=== PATIENT | female | born 1930 | race Caucasian/White ===

== ENCOUNTER → 2017-06-14 | Outpatient (CLI) | payer MEDICARE, BC, OTHER ==
[2017-06-14 13:47] LABS: AUTOMATED NEUTROPHIL # 5.7 TH/MM3 (1.8-7.7); BASOPHIL # 0.1 TH/MM3 (0-0.2); BASOPHIL % 0.7 % (0.0-2.0); EOSINOPHIL # 0.3 TH/MM3 (0-0.4); EOSINOPHIL % 3.4 % (0.0-4.0); HEMATOCRIT 39.5 % (35.0-46.0); HEMO FLAGS DIFF FINAL; HEMOGLOBIN 13.4 GM/DL (11.6-15.3); LYMPH % 16.4 % (9.0-44.0); LYMPHOCYTE # 1.3 TH/MM3 (1.0-4.8); MEAN CELL VOLUME 89.4 FL (80.0-100.0); MEAN CORPUSCULAR HEMOGLOBIN 30.2 PG (27.0-34.0); MEAN CORPUSCULAR HGB CONC 33.8 % (32.0-36.0); MEAN PLATELET VOLUME 8.4 FL (7.0-11.0); MONO % 8.1 % (0.0-8.0); MONOCYTE # 0.6 TH/MM3 (0-0.9); NEUT % 71.4 % (16.0-70.0); PLATELET COUNT 239 TH/MM3 (150-450); RED BLOOD COUNT 4.42 MIL/MM3 (4.00-5.30); RED CELL DISTRIBUTION WIDTH 15.7 % (11.6-17.2); WHITE BLOOD COUNT 7.9 TH/MM3 (4.0-11.0)
[2017-06-14 13:52] LABS: BILIRUBIN, URINE NEG (NEG); BLOOD, URINE MOD (NEG); GLUCOSE,URINE NEG (NEG); KETONE, URINE NEG (NEG); NITRITE,URINE NEG (NEG); SQUAMOUS EPITHELIAL CELL URINE 1 /hpf (0-5); URINE COLOR LIGHT-YELLOW (YELLW/STRAW); URINE LEUKOCYTE ESTERASE SMALL (NEG)
[2017-06-14 13:54] LABS: COMMENT (UR) CULT NOT INDICATED; CULTURE IF INDICATED CULT NOT INDICATED
[2017-06-14 14:24] LABS: ANION GAP 6 MEQ/L (5-15); BICARBONATE 25.7 MEQ/L (21.0-32.0); BLOOD UREA NITROGEN 23 MG/DL (7-18); CALCIUM 9.3 MG/DL (8.5-10.1); CHLORIDE 108 MEQ/L (98-107); CREATININE 1.07 MG/DL (0.50-1.00); GLOMERULAR FILTRATION RATE 49 ML/MIN (>89); GLUCOSE,FASTING 110 MG/DL (74-99); POTASSIUM 3.7 MEQ/L (3.5-5.1); SODIUM (NA) 140 MEQ/L (136-145)
== END ==
LOC: CPRE 13:07
DX: Z01.812 Encounter for preprocedural laboratory examination (principal); Z01.810 Encounter for preprocedural cardiovascular examination; N81.10 Cystocele, unspecified; N81.6 Rectocele; N81.5 Vaginal enterocele
CPT/HCPCS: 36415; 80048; 81001; 85025; 93005

== ENCOUNTER 2017-06-16 10:18 | Observation (INO) | payer MEDICARE, BC ==
--- NOTE | 2017-06-15 21:53 | MH ---
cc: BIRDIE LR DATE OF ADMISSION 06/16/2017 ADMITTING DIAGNOSIS: Enterocele, cystocele, rectocele. HISTORY OF PRESENT ILLNESS An 87-year-old single white female para 2-0-0-2 who had worsening prolapse of tissue from vagina over the last one year with difficulty emptying her bladder and pelvic pressure. Previous repair alleviated the symptoms. She would like to have this repeated PAST MEDICAL HISTORY/PAST SURGICAL HISTORY 1. Total abdominal hysterectomy 1983 2. 1993 bilateral knee replacement MEDICATIONS 1. Isosorbide 2. Crestor. ALLERGIES PENICILLIN TRANSFUSIONS None. OBSTETRICAL HISTORY Two vaginal deliveries. SOCIAL HISTORY Retired. Alcohol occasional, tobacco quit over 20 years ago. FAMILY HISTORY Noncontributory PHYSICAL EXAMINATION GENERAL: A well-nourished well-developed white female. VITAL SIGNS: Stable. HEENT: Exam is normal. CHEST: Clear HEART: Regular rate BREASTS: Symmetrical. ABDOMEN: Benign. PELVIC: Third-degree enterocele with a cystocele, rectocele. Bimanual - no mass or pain. She is now admitted for vaginal AP repair, vaginal repair of enterocele with extensive vaginal closure. While in the office, I explained the procedures, the risks, benefits and complications. The patient would like to proceed. She is aware she could have recurrent prolapse. MD LISA Zuluaga/ /9:15 PM /9:31 PM
[~2017-06-16] VITALS: Ht 165.1 cm; Wt 84.9 kg
[~2017-06-16 10:18] MED LIST: BIOT10TA PO; CALC1TAB87 PO; CHOL1CAP34 PO; CYAN1TAB24 PO; FOLI800T PO; MAGN250T11 PO; META48.54 PO; MIRA3350 PO; POTA-255 PO; VITA500T83 PO; ZANT150T2 PO
[2017-06-16] MEDS ORDERED: ACETAMINOPHEN 1000 MG/100 ML 100 ML IV SCH (11:30)
[2017-06-16] MEDS: LACTATED RINGER'S 1000 ML IV PRN ×2 (11:30→20:28)
[2017-06-16] MEDS ORDERED: SODIUM CHLORID 0.9% 500 ML IV PRN (11:30)
[2017-06-16] MEDS ORDERED: CHLORHEXIDINE GLUCONATE 2 % 1 PACK (2 CLOTHS) TOPICAL PRN (11:30)
[2017-06-16] MEDS ORDERED: METOPROLOL TARTRATE 25 MG TAB PO PRN (11:30)
[2017-06-16] MEDS ORDERED: POVIDONE IODINE 5% (ANTISEPSIS KIT) 4 APPLICATIONS EACH NARE PRN (11:30)
[2017-06-16] MEDS ORDERED: ESTROGENS CONJUGATED VAG CREA 15 APPL/30 GM TUBE ONE (12:01)
[2017-06-16] MEDS ORDERED: ACETAMINOPHEN 1000 MG/100 ML 0 ML IV ONE (12:27)
[2017-06-16] MEDS ORDERED: FAMOTIDINE 20 MG/2 ML VIAL ONE (12:28)
[2017-06-16] MEDS ORDERED: MIDAZOLAM HCL 2 MG/2 ML VIAL ONE (12:28)
[2017-06-16] MEDS ORDERED: ONDANSETRON HCL 4 MG/2 ML VIAL IV PUSH PRN (13:45)
[2017-06-16] MEDS ORDERED: PROMETHAZINE INJ 25 MG/ML VIAL IM PRN (13:45)
[2017-06-16] MEDS ORDERED: diphenhydrAMINE HCL 25 MG CAP PO PRN (13:45)
[2017-06-16] MEDS ORDERED: HYDROmorphone HCL PF 1 MG/ML VIAL IV PUSH PRN (13:45)
[2017-06-16] MEDS: CLINDAMYCIN 600 MG/NS PREMIX 50 ML IV SCH ×2 (14:07→14:08)
[2017-06-16] MEDS ORDERED: ONDANSETRON INJ 8 MG in DEXTROSE 5% IN WATER INJ 50 ML IV PRN ×2 (14:15)
[2017-06-16] MEDS: LACTATED RINGER'S 1000 ML INJ 1,000 ML IV SCH ×2 (14:15→20:29)
[2017-06-16] MEDS ORDERED: *morphine SULFATE 4 MG/ML PERIprocedure ONLY ONE (14:22)
[2017-06-16] MEDS: DOCUSATE SODIUM 100 MG CAP PO SCH (15:00)
[2017-06-16 15:15] VITALS: BP 159/75; PULSE 70; RESP 14; TEMP 97.5
[2017-06-16] MEDS ORDERED: PILL SPLITTER OTHER PRN (15:15)
[2017-06-16] MEDS ORDERED: DO NOT ADM ANY ANTICOAGULANT DRUGS PRN (15:15)
--- NOTE | 2017-06-16 15:27 | PD.CONS ---
HPI Service [facility] Hospitalists Consult Requested By Primary Care Physician Nickie David MD Diagnoses: History of Present Illness Mrs. Christy is an 87-year-old female. She is in the hospital today after undergoing surgical repair for vaginal prolapse. I am seeing her post op. She is doing well in regards to nausea, but complaint of epigastric abdominal pain. Past medical history includes GERD. No other chronic conditions reported ( She has no HTN or Hyperlipidemia, though these are in a part of her medical record, they are in error per patient). Review of Systems Constitutional: DENIES: Fatigue, Fever, Chills, Night Sweats Eyes: DENIES: Blurred vision, Diplopia, Eye inflammation, Eye pain Ears, nose, mouth, throat: DENIES: Tinnitus, Hearing loss, Vertigo, Nasal discharge Respiratory: DENIES: Cough, Wheezing, Shortness of breath Cardiovascular: DENIES: Chest pain, Palpitations, Syncope Gastrointestinal: COMPLAINS OF: Abdominal pain, DENIES: Black stools, Bloody stools Musculoskeletal: DENIES: Joint pain, Muscle aches, Stiffness, Joint Swelling Integumentary: DENIES: Abnormal pigmentation, Pruritus, Rash, Nail changes Hematologic/lymphatic: DENIES: Bruising, Lymphadenopathy Immunologic/allergic: DENIES: Eczema, Urticaria Neurologic: DENIES: Abnormal gait, Headache, Paresthesias Psychiatric: DENIES: Anxiety, Confusion, Hallucinations Past Family Social History Allergies: Coded Allergies: penicillin G (Verified Allergy, Severe, can't remember the reaction, ) Past Medical History Gastroesophageal reflux disease Past Surgical History Bilateral knee surgery History of hysterectomy Tooth implants Cholecystectomy Tonsillectomy Reported Medications Reported Meds & Active Scripts Active Reported Magnesium Oxide 250 Mg Tab 125 Mg PO DAILY Biotin 10 Mg Tab 10 Mg PO DAILY Miralax Powder (Polyethylene Glycol 3350 Powder) 17 Gm Powd 17 Gm PO DAILY Mix and dissolve one measuring cap-ful (17 grams) in water or juice. Metamucil (Psyllium Hydrophilic Mucilloid) 48.57 % Pow 1 Pkt PO DAILY Potassium (Potassium Gluconate) 600 Mg (99 Mg) Tablet 1 Tab PO DAILY Folic Acid 0.8 Mg Tab 800 Mcg PO DAILY B12 (Cyanocobalamin) 1,000 Mcg Tab 5,000 Mg PO DAILY Calcium 600 with Vitamin D (Calcium Carbonate-Cholecalciferol) 600-400 mg-Unit Tab 1 Tab PO DAILY Vitamin C ER (Ascorbic Acid) 500 Mg Tiffanie 500 Mg PO DAILY Zantac (Ranitidine HCl) 150 Mg Tab 150 Mg PO DAILY Vitamin D3 (Cholecalciferol) 50,000 Unit Cap 50,000 Units PO Q7D Active Ordered Medications Administered Medications Medications (Trade) Dose Ordered Sig/Bradly Route PRN Reason Start Time Stop Time Status Last Admin Dose Admin Lactated Ringer's 1,000 ml @ 30 mls/hr Q24H PRN IV SEE LABEL COMMENTS 06/16/17 11:30 06/19/17 11:29 06/16/17 11:30 Povidone Iodine (Betadine 5% Antisepsis Kit) 1 applic BUSINESS REPRESENTATIVE PRN EACH NARE SEE LABEL COMMENTS 06/16/17 11:30 06/19/17 11:29 06/16/17 11:47 Chlorhexidine Gluconate (Chlorhexidine 2% Cloth) 3 pack BUSINESS REPRESENTATIVE PRN TOPICAL SEE LABEL COMMENTS 06/16/17 11:30 06/19/17 11:29 06/16/17 11:00 Clindamycin/ Sodium Chloride 50 ml @ 100 mls/hr BUSINESS REPRESENTATIVE IV 06/16/17 11:30 06/16/17 14:08 Family History DM2 in Brother Pancreatic Cancer in mother CAD in Father Social History Distant past history of smoking, no current smoking Occasional alcohol use No illicit drug abuse Physical Exam Vital Signs Vital Signs Date Time Temp Pulse Resp B/P (MAP) Pulse Ox O2 Delivery O2 Flow Rate FiO2 06/16/17 13:50 98.2 92 14 130/77 (94) 99 Nasal Cannula 3 06/16/17 11:33 98.3 70 16 150/81 (104) 97 Physical Exam GENERAL: NAD, A&Ox3 HEAD: Normocephalic. NECK: Supple, trachea midline. No lymphadenopathy. EYES: No scleral icterus. No injection or drainage. CARDIOVASCULAR: Regular rate and rhythm without murmurs, gallops, or rubs. RESPIRATORY: Breath sounds equal bilaterally. No accessory muscle use. GASTROINTESTINAL: Abdomen soft, non-tender, nondistended. MUSCULOSKELETAL: No cyanosis, or edema. SKIN: Warm and dry. NEURO: No focal neurological deficitis. Assessment and Plan Problem List: (1) Hyperlipidemia ICD Code: E78.5 - Hyperlipidemia, unspecified Assessment and Plan 87-year-old female status post surgical repair of vaginal prolapse Status post surgical repair, vaginal prolapse Abdominal Pain (epigastric) Continue as needed pain treatments Abdominal pain may be gas related or post op pain (epigastric location) One time IM Bentyl PRN Simethicone after peristalsis resumes, once Continue Morphine and Dilaudid if needed, for pain Gynecology following Monitor postop GERD Resume baseline treatment DVT Prophylaxis No need for immediate post op anticoagulation Possible DC tomorrow Anshul Duque MD Jun 16, 2017 15:27
[2017-06-16] MEDS: FOLIC ACID 1 MG TAB PO SCH (16:00)
[2017-06-16] MEDS ORDERED: SIMETHICONE 80 MG CHEWABLE TAB CHEW PRN (16:15)
[2017-06-16] MEDS ORDERED: DICYCLOMINE HCL 20 MG/2 ML VIAL IM ONE (16:15)
[2017-06-16 17:00] VITALS: BP 129/63; PULSE 62; RESP 16; TEMP 98; O2SAT 95
[2017-06-16] MEDS: POTASSIUM CHLORIDE 8 MEQ CONTROLLED RELEASE TAB PO SCH (17:00)
[2017-06-16 20:00] VITALS: BP 105/69; PULSE 77; RESP 16; TEMP 97.5; O2SAT 95
[2017-06-16] MEDS: KETOROLAC TROMETHAMINE 30 MG/ML (IVP) VIAL IVP SCH (20:24)
[2017-06-16] MEDS: FAMOTIDINE 20 MG TAB PO SCH (20:24)
[2017-06-16] MEDS: ACETAMINOPHEN 1000 MG/100 ML VIAL IV SCH (20:24)
[2017-06-16] MEDS ORDERED: ZOLPIDEM TARTRATE 5 MG TAB PO PRN (21:00)
[2017-06-16 23:44] VITALS: BP 104/59; PULSE 65; RESP 18; TEMP 97.5; O2SAT 97
[2017-06-17] MEDS: KETOROLAC TROMETHAMINE 30 MG/ML (IVP) VIAL IVP SCH ×2 (02:58→08:29)
[2017-06-17] MEDS: DOCUSATE SODIUM 100 MG CAP PO SCH (02:58)
[2017-06-17] MEDS: ACETAMINOPHEN 1000 MG/100 ML VIAL IV SCH (02:58)
[2017-06-17 04:00] VITALS: BP 125/62; PULSE 74; RESP 18; TEMP 98.1; O2SAT 93
[2017-06-17 05:53] LABS: AUTOMATED NEUTROPHIL # 7.9 TH/MM3 (1.8-7.7); BASOPHIL % 0.2 % (0.0-2.0); EOSINOPHIL % 0.3 % (0.0-4.0); HEMATOCRIT 34.3 % (35.0-46.0); HEMOGLOBIN 11.5 GM/DL (11.6-15.3); LYMPH % 9.2 % (9.0-44.0); LYMPHOCYTE # 0.9 TH/MM3 (1.0-4.8); MEAN CELL VOLUME 89.2 FL (80.0-100.0); MEAN CORPUSCULAR HEMOGLOBIN 29.9 PG (27.0-34.0); MEAN CORPUSCULAR HGB CONC 33.6 % (32.0-36.0); MEAN PLATELET VOLUME 8.1 FL (7.0-11.0); MONO % 6.8 % (0.0-8.0); MONOCYTE # 0.6 TH/MM3 (0-0.9); NEUT % 83.5 % (16.0-70.0); PLATELET COUNT 209 TH/MM3 (150-450); RED BLOOD COUNT 3.84 MIL/MM3 (4.00-5.30); RED CELL DISTRIBUTION WIDTH 15.1 % (11.6-17.2); WHITE BLOOD COUNT 9.4 TH/MM3 (4.0-11.0)
[2017-06-17 06:25] LABS: BICARBONATE 25.7 MEQ/L (21.0-32.0); CALCIUM 8.5 MG/DL (8.5-10.1); CREATININE 0.86 MG/DL (0.50-1.00)
[2017-06-17 07:45] VITALS: BP 108/57; PULSE 50; RESP 14; TEMP 98; O2SAT 96
[2017-06-17] MEDS: FOLIC ACID 1 MG TAB PO SCH (08:24)
[2017-06-17] MEDS: FAMOTIDINE 20 MG TAB PO SCH (08:25)
[2017-06-17] MEDS: POTASSIUM CHLORIDE 8 MEQ CONTROLLED RELEASE TAB PO SCH (08:25)
[2017-06-17] MEDS ORDERED: OXYC-392 PO (08:39)
--- NOTE | 2017-06-17 08:40 | HHI.DCPOC ---
Discharge Care Plan Report Symptoms to Your Doctor -Temperature above 100.5 degrees -Redness, of incision or excessive or foul smelling drainage -Unusual pain or calf pain -Increased vaginal bleeding -Painful or difficulty urinating -Feelings of extreme sadness or anxiety after 2 weeks Goals to Promote Your Health * To prevent worsening of your condition and complications * To maintain your health at the optimal level Directions to Meet Your Goals Take your medications as prescribed Follow your dietary instruction Follow activity as directed Ensure plenty of rest for recovery Drink fluids for hydration Keep your appointments as scheduled Take your immunizations and boosters as scheduled If your symptoms worsen call your PCP, if no PCP go to Urgent Care Center or Emergency Room Smoking is Dangerous to Your Health. Avoid second hand smoke Call the 24-hour crisis hotline for domestic abuse at Jp Ayala MD Jun 17, 2017 08:40
--- NOTE | 2017-06-17 08:55 | MP ---
cc: BIRDIE LR MD DATE OF SURGERY: 06/16/2017. PREOPERATIVE DIAGNOSIS Cystocele, enterocele, rectocele. POSTOPERATIVE DIAGNOSIS Cystocele, enterocele, rectocele. PROCEDURE PERFORMED Vaginal AP repair and vaginal closure of enterocele. ANESTHESIA General ET SURGEON Birdie Lr MD BOTTLING ATTENDANT Lola Alfredo. ESTIMATED BLOOD LOSS 50 ccs. FLUIDS 1 liter crystalloid. OBJECTIVE FINDINGS Following induction of adequate general endotracheal anesthesia, the patient was prepped and draped supine on the operating table in the dorsal lithotomy position in the usual sterile fashion with the bladder being drained with Keane catheterization. Exam under anesthesia revealed a third-degree enterocele with only a small cystocele and small rectocele. Using Allis clamps for traction the perineum was opened in the midline with a knife and then the vagina mucosa undermined over the rectocele and the very large enterocele opening the sac in the process. This was continued to just beneath the base of the small cystocele. The enterocele sac was resected. The pursestring suture of 2-0 Vicryl was used to close the enterocele, with the food bagging machine operator's finger in place, it was tied down to ensure no bowel were trapped. The excess anterior vaginal mucosa was trimmed with overlaying the large enterocele, small rectocele and then the vaginal mucosa was reapproximated over the base to the bladder from front to back with interrupted sutures of 2-0 Vicryl [id number] fashion, closing the mucosa of the vagina beneath the cystocele, closing the vault from [id number] and over the small rectocele. The perineum was then closed with interrupted sutures of 2-0 Vicryl and a running stitch of 2-0 Vicryl. When complete she had good support, good hemostasis. The vagina was packed with 2-inch gauze moistened with Premarin cream. Rectal exam was normal. All counts were correct. The patient's legs were taken down from the stirrups. She was awakened and taken to the recovery room in good condition. Birdie Lr MD JAW/TLL /1:39 PM /8:39 AM
[2017-06-17] MEDS ORDERED: POLYETHYLENE GLYCOL 17 GM PKG PO SCH (09:00)
[2017-06-17] MEDS ORDERED: PSYLLIUM FIBER SF/GF 6 GM POWD PKT PO SCH (09:00)
== END 2017-06-17 11:05 | disposition home or self-care (01) ==
LOC: HSDC 10:18 → HSDI 13:47 → H1EA 14:54
PROVIDERS: ADMIT Obstetrics & Gynecology; ATTEND Obstetrics & Gynecology
DX: N99.3 Prolapse of vaginal vault after hysterectomy (principal); N81.3 Complete uterovaginal prolapse; Z87.891 Personal history of nicotine dependence; Z01.818 Encounter for other preprocedural examination
CPT/HCPCS: 00942; 57265; 80048; 85025; 88302; 94150; 96365; 96366; 96375; 96376; G0378; J0131; J0500; J1885; J2250; J2270; J3010; J7120

== ENCOUNTER 2017-09-12 16:37 | Emergency (ER) | payer MEDICARE, BC, OTHER ==
[~2017-09-12] VITALS: Ht 162.6 cm; Wt 86.0 kg
[~2017-09-12 16:37] MED LIST changes: +OXYC-392 PO
[2017-09-12 17:06] VITALS: BP_SYST 173; BP_SYST 187; BP_DIAS 117; BP_DIAS 86; PULSE 76; RESP 16; TEMP 97.5; O2SAT 97
--- NOTE | 2017-09-12 20:34 | PD ---
HPI Chief Complaint: Head Injury Time Seen by Provider: 20:16 Travel History International Travel<30 days: No Contact w/Intl Traveler<30days: No Traveled to known affect area: No History of Present Illness HPI 87yo F here with c/o right forehead laceration s/p slip and fall in the rain today. Pt denies any LOC. Said she slip in the rain and the wind blew her forward so she fell forward. Also with left sided rib pain after the fall. Denies any eye pain, visual changes, chest pain, sob, n/v, abdominal pain, focal weakness or numbness. Denies any anticoagulation use. Up to date on tetanus. PFSH Past Medical History Hx Anticoagulant Therapy: Yes (asa 81mg) Blood Disorders: No Cancer: No Cardiovascular Problems: No High Cholesterol: Yes Diabetes: No Diminished Hearing: Yes (HEARING AIDS) Endocrine: No Gastrointestinal Disorders: Yes (reflux) GERD: Yes Genitourinary: No Hepatitis: No Hiatal Hernia: Yes Hypertension: No Immune Disorder: No Musculoskeletal: No Neurologic: No Psychiatric: No Reproductive: No Respiratory: No Immunizations Current: Yes Thyroid Disease: No Tetanus Vaccination: < 5 Years Influenza Vaccination: Yes ?: Not Menopausal: Yes Past Surgical History Abdominal Surgery: Yes (CHOLY,APPY) AICD: No Appendectomy: Yes Cardiac Surgery: No Cholecystectomy: Yes Ear Surgery: No Endocrine Surgery: No Eye Surgery: Yes (BILATERAL CATARACT) Genitourinary Surgery: No Gynecologic Surgery: Yes (PARTIAL HYSTERCTOMY) Hysterectomy: Yes Joint Replacement: Yes (BILATERAL KNEES) Oral Surgery: Yes (tonsillectomy) Pacemaker: No Thoracic Surgery: No Other Surgery: Yes (removal of appendix, gallbladder, both knees relaces) Social History Alcohol Use: Yes (wine occ) Tobacco Use: No Substance Use: No Allergies-Medications (Allergen,Severity, Reaction): Coded Allergies: penicillin G (Verified Allergy, Severe, can't remember the reaction, ) Reported Meds & Prescriptions Reported Meds & Active Scripts Active Tylenol (Acetaminophen) 325 Mg Tab 325 Mg PO Q4H PRN Reported Magnesium Oxide 250 Mg Tab 125 Mg PO DAILY Biotin 10 Mg Tab 10 Mg PO DAILY Miralax Powder (Polyethylene Glycol 3350 Powder) 17 Gm Powd 17 Gm PO DAILY Mix and dissolve one measuring cap-ful (17 grams) in water or juice. Metamucil (Psyllium Hydrophilic Mucilloid) 48.57 % Pow 1 Pkt PO DAILY Potassium (Potassium Gluconate) 600 Mg (99 Mg) Tablet 1 Tab PO DAILY Folic Acid 0.8 Mg Tab 800 Mcg PO DAILY B12 (Cyanocobalamin) 1,000 Mcg Tab 5,000 Mg PO DAILY Calcium 600 with Vitamin D (Calcium Carbonate-Cholecalciferol) 600-400 mg-Unit Tab 1 Tab PO DAILY Vitamin C ER (Ascorbic Acid) 500 Mg Tiffanie 500 Mg PO DAILY Zantac (Ranitidine HCl) 150 Mg Tab 150 Mg PO DAILY Vitamin D3 (Cholecalciferol) 50,000 Unit Cap 50,000 Units PO Q7D Review of Systems Except as stated in HPI: all other systems reviewed are Neg Physical Exam Narrative GENERAL: 87yo F in mild distress. SKIN: Focused skin assessment warm/dry. HEAD: +2cm laceration above right eyebrow. EYES: Pupils equal and round. EOMI. +Periorbital ecchymoses right. + Ecchymoses right nasal bone. ENT: No nasal bleeding or discharge. Mucous membranes pink and moist. NECK: No midline cervical spine ttp. CARDIOVASCULAR: Regular rate and rhythm. No murmur appreciated. RESPIRATORY: No accessory muscle use. Clear to auscultation. Breath sounds equal bilaterally. GASTROINTESTINAL: Abdomen soft, non-tender, nondistended. MUSCULOSKELETAL: No obvious deformities. No clubbing. No cyanosis. No edema. NEUROLOGICAL: Awake and alert. No obvious cranial nerve deficits. Motor grossly within normal limits. Normal speech. PSYCHIATRIC: Appropriate mood and affect; insight and judgment normal. Data Data Last Documented VS Vital Signs Date Time Temp Pulse Resp B/P (MAP) Pulse Ox O2 Delivery O2 Flow Rate FiO2 09/12/17 22:38 09/12/17 22:33 75 20 97 Room Air 09/12/17 17:[address] Brain W/O Iv Contrast(Rout) (09/12/17 ) Ct Facial Bones W/O Iv Cont (09/12/17 ) Ribs, Uni (W/Exp Cxr-Min 3vw) (09/12/17 ) Electrocardiogram (09/12/17 ) Acetaminophen (Tylenol) (09/12/17 21:45) MDM Medical Decision Making Medical Screen Exam Complete: Yes Emergency Medical Condition: Yes Interpretation(s) EKG: NSR 75bpm. Normal axis. TWI III. No ST segment elevation or depression. Differential Diagnosis ICH vs. laceration vs. rib fracture vs. contusion Narrative Course 87yo F with right forehead laceration and left rib pain s/p mechanical fall today. Pt denies any chest pain or sob but fell face forward and hit her left ribs. Xray left ribs/CXR showed no fracture. No PTX. Pt given acetaminophen and pain has improved. Does not want any more pain medication. Right forehead laceration repaired by my PA. CT brain showed no acute intracranial abnormality. Mild atrophy. Mild right frontal sinus disease. CT facial showed right frontal scalp swelling. Degenerative change of the TMJ regions. Pt has been acting like herself and wants to go home. Return precautions given. Diagnosis Primary Impression: Fall Qualified Codes: W19.XXXA - Unspecified fall, initial encounter Patient Instructions: General Instructions Departure Forms: Tests/Procedures Additional Instructions: Please have your sutures remove in 5 days by your primary care physician or ED. Return to the ED if symptoms worsen. Med/Other Pt SpecificInfo: Prescription(s) given Scripts Acetaminophen (Tylenol) 325 Mg Tab 325 MG PO Q4H Y for PAIN SCALE 1 TO 4, #20 TAB 0 Refills Prov: Shauna Graf DO 09/12/17 Disposition: 01 DISCHARGE HOME Condition: Stable Shauna Graf DO Sep 12, 2017 20:34
--- NOTE | 2017-09-12 20:51 | PD ---
Physical Exam Narrative Facial laceration was repaired by myself please see Dr. Graf's note for information regarding patient's visit Data Data Last Documented VS Vital Signs Date Time Temp Pulse Resp B/P (MAP) Pulse Ox O2 Delivery O2 Flow Rate FiO2 09/12/17 17:06 97.5 76 16 173/117 (135) 97 187/86 (119) Orders Orders Ct Brain W/O Iv Contrast(Rout) (09/12/17 ) Ct Facial Bones W/O Iv Cont (09/12/17 ) Ribs, Uni (W/Exp Cxr-Min 3vw) (09/12/17 ) MDM Supervised Visit with CHRISTIN: Yes Procedures Procedure Narrative LACERATION LOCATION: Right forehead LENGTH: 1.5 centimeters NUMBER OF STITCHES/ARELY: 6 REPAIR: The area of the laceration was prepped with Betadine and sterilely draped. The laceration was infiltrated with 1% lidocaine. The wound was copiously irrigated and explored without evidence of foreign body, tendon injury or neurovascular injury. The wound was closed using 5-0 Ethilon. This was a single layer repair. A sterile dressing was applied. The patient was advised to keep the dressing clean and dry. Patient tolerated the procedure well. Jennie Jackson Sep 12, 2017 20:50
--- NOTE | 2017-09-12 21:42 | RADRPT ---
EXAM DATE/TIME: 09/12/2017 21:03 [facility] COMPARISON: No previous studies available for comparison. INDICATIONS : Left rib pain , mid chest from fall today. MEDICAL HISTORY : None. SURGICAL HISTORY : None. ENCOUNTER: Initial ACUITY: 1 day PAIN SCORE: 9/10 LOCATION: Left middle FINDINGS: Multiple views of the left ribs were performed. There is no evidence of displaced fracture. No dest ructive lesions or areas of periosteal thickening are seen. Expiratory view of the chest is negative for pneumothorax. The mediastinal structures are midline. There is degenerative change of the fela ohumeral joint. There is calcific density seen adjacent to the inferior medial aspect of the humeral head on the left likely related to loose bodies. There is a dextrocurvature of the thoracic spine. CONCLUSION: No fracture seen. Jp Goodwin MD on September 12, 2017 at 21:38 Board Certified Radiologist. This report was verified electronically.
[2017-09-12] MEDS ORDERED: ACETAMINOPHEN 500 MG CPLT PO ONE (21:45)
--- NOTE | 2017-09-12 22:22 | RADRPT ---
EXAM DATE/TIME: 09/12/2017 21:14 [facility] COMPARISON: No previous studies available for comparison. INDICATIONS : Trauma. Fall. RADIATION DOSE: 61.23 CTDIvol (mGy) MEDICAL HISTORY : None SURGICAL HISTORY : None. ENCOUNTER: Initial ACUITY: 1 day PAIN SCALE: 9/10 LOCATION: Bilateral cranial TECHNIQUE: Multiple contiguous axial images were obtained of the head. Using automated exposure control and adj ustment of the mA and/or kV according to patient size, radiation dose was kept as low as reasonably a chievable to obtain optimal diagnostic quality images. DICOM format image data is available electro nically for review and comparison. FINDINGS: CEREBRUM: The ventricles are normal for age. Cortical sulci are mildly widened over the frontal lobes. No evid ence of midline shift, mass lesion, hemorrhage or acute infarction. No extra-axial fluid collections are seen. POSTERIOR FOSSA: The cerebellum and brainstem are intact. The 4th ventricle is midline. The cerebellopontine angle i s unremarkable. EXTRACRANIAL: The visualized portion of the orbits is intact. There is right frontal sinus disease. SKULL: The calvaria is intact. No evidence of skull fracture. CONCLUSION: 1. No acute intracranial abnormality seen. 2. Mild atrophy. 3. Mild right frontal sinus disease. Jp Goodwin MD on September 12, 2017 at 22:19 Board Certified Radiologist. This report was verified electronically.
[2017-09-12] MEDS ORDERED: TYLE325T PO (22:26)
--- NOTE | 2017-09-12 22:26 | RADRPT ---
EXAM DATE/TIME: 09/12/2017 21:14 [facility] COMPARISON: No previous studies available for comparison. INDICATIONS : Trauma. Fall. Facial lacerations and bruising. RADIATION DOSE: 25.60 CTDIvol (mGy) MEDICAL HISTORY : None SURGICAL HISTORY : None. ENCOUNTER: Initial ACUITY: 1 day PAIN SCORE: 9/10 LOCATION: Bilateral facial TECHNIQUE: Volumetric scanning of the facial bones was performed. Using automated exposure control and adjustme nt of the mA and/or kV according to patient size, radiation dose was kept as low as reasonably achiev able to obtain optimal diagnostic quality images. DICOM format image data is available electronicall y for review and comparison. FINDINGS: ORBITS: The orbital and infraorbital osseous structures are intact. The retroconal structures have a normal configuration. No radiopaque foreign bodies are seen. NASAL BONE: The nasal bone and maxillary spine are intact ZYGOMATIC ARCHES: Symmetric without evidence of fracture. SINUSES: There is mild right frontal sinus and bilateral sphenoid disease. The maxillary, ethmoid and left fro ntal sinuses are intact. No air-fluid levels seen. NASAL CAVITY: The nasal septum is intact and midline. The lacrimal ducts are intact. SOFT TISSUES: There is soft tissue swelling at the right frontal scalp region. A small focus of air within the soft tissues. INTRACRANIAL: No intracranial air seen. CRIBIFORM PLATE: Grossly intact. OTHER: There is degenerative change at the TMJ regions bilaterally. CONCLUSION: 1. Right frontal scalp swelling. 2. Mild right frontal and bilateral sphenoid sinus disease. 3. Prominent hypertrophic change at the mandibular condyle with associated degenerative change of the TMJ regions. Jp Goodwin MD on September 12, 2017 at 22:21 Board Certified Radiologist. This report was verified electronically.
[2017-09-12 22:33] VITALS: BP 141/83; PULSE 75; RESP 20; O2SAT 97
--- NOTE | 2017-09-13 10:38 | EKG ---
Date Performed: 09/12/2017 Time Performed: 21:40:09 PTAGE: 87 years EKG: Sinus rhythm NORMAL ECG Since the PREVIOUS TRACING , no significant change noted PREVIOUS TRACIN06/14/2017 13.55 DOCTOR: Antonio Lam Interpretating Date/Time 09/13/2017 10:34:39
== END 2017-09-12 22:50 | disposition home or self-care (01) ==
LOC: PHEFT 16:37
DX: S01.81XA Laceration without foreign body of other part of head, initial encounter (principal); R07.81 Pleurodynia; E78.00 Pure hypercholesterolemia, unspecified; K21.9 Gastro-esophageal reflux disease without esophagitis; W01.0XXA Fall on same level from slipping, tripping and stumbling without subsequent striking against object, initial encounter; Z88.0 Allergy status to penicillin; Z79.899 Other long term (current) drug therapy
CPT/HCPCS: 12011; 70450; 70486; 71101; 93005